=== PATIENT | female | born 1990 | race American Indian/Alaskan Native ===

== ENCOUNTER 2017-09-27 09:03 | Inpatient (IN) | payer MEDICAID ==
--- NOTE | 2017-09-27 09:13 | History and Physical Report ---
History of Present Illness Date of examination: 09/27/17 Date of admission: 09/27/17 09:04 Chief complaint: post dates IOL History of present illness: EDC Confirmation: 09/16/2017 Past History : 2 Living Children: 0 Spont. Ab: 1 # 1 Delivery date: 04/06/2010 Delivery type: SAB Comments: D&C Past Surgical History: negative Past Medical History Anesthesia Complications: negative Anemia: negative Autoimmune Disorder: negative Bleeding Disorder: negative Blood Transfusions: negative Breast Disease: negative Diabetes: negative Heart Disease: negative Hypertension: negative Hepatitis/Liver Disease: negative Kidney Disease/UTI: negative Neurologic/Epilepsy/Migraines: negative Phlebitis/Varicosities: negative Psychiatric: negative Pulmonary Disease/Asthma: negative Thyroid Disease: negative Hospitalizations: negative Surgery (Non-director of training): negative Infection History Hx of STD: none HIV Risk Eval: low risk Hepatitis B Risk Eval: low risk Personal hx. of genital herpes: no Partner hx. of genital herpes: no Varicella/Chicken Pox Status: Previous Disease TB Risk: no Genetic History Congenital Heart Defect: Mom: no Dad: no Christopher Disease: Mom: no Dad: no Thalassemia Mom: no Dad: no Neural Tube Defect Mom: no Dad: no Down's Syndrome Mom: no Dad: no Richy-Sachs Mom: no Dad: no Sickle Cell Disease/Trait Mom: no Dad: no Hemophilia Mom: no Dad: no Muscular Dystrophy Mom: no Dad: no Cystic Fibrosis Mom: no Dad: no [place] Chorea Mom: no Dad: no Mental Retardation Mom: no Dad: no Fragile X Mom: no Dad: no Other Genetic/Chromosomal Disorder Mom: no Dad: no Child w/other defect Mom: no Dad: no Enviromental Exposures Xray Exposure: no Medication, drug, or alcohol use since LMP: no Chemical/Other Exposure: no Exposure to Cat Liter: no Active Medications (reviewed today): None Current Allergies (reviewed today): No known allergies Past History Past Medical History: no pertinent history Past Surgical History: no surgical history - Obstetrical History Expected Date of Delivery: 09/16/17 Actual Gestation: 41 Week(s) 4 Day(s) : 2 Para: 0 Hx # Term Pregnancies: 0 Number of Pregnancies: 0 Spontaneous Abortions: 1 Induced : 0 Number of Living Children: 0 Medications and Allergies Allergies Allergy/AdvReac Type Severity Reaction Status Date / Time No Known Allergies Allergy Verified 09/27/17 09:42 Review of Systems All systems: negative - Physical Exam Breasts: Positive: normal Cardiovascular: Regular rate Lungs: Positive: Clear to auscultation, Normal air movement Abdomen: Positive: normal appearance, soft Genitourinary (Female): Positive: normal external genitalia, normal perenium Vulva: both: normal Vagina: Positive: normal moisture Uterus: Positive: normal size, normal contour Anus/Rectum: Positive: normal perianal skin Extremities: Positive: normal Deep Tendon Reflex Grade: Normal +2 - Obstetrical FHR: category 2 Uterine Contraction Monitor Mode: External Cervical Dilatation: 1 Cervical Effacement Percentage: 50 station: -2 Uterine Contraction Pattern: Absent Uterine Tone Measurement Phase: Resting (variables noted that appeared to be position dependent - resolved with position change.) Results Result Diagrams: 09/27/17 09:47 All other labs normal. Patient: ROSS MCDOWELL ID: [id number] Note: All result statuses are Final unless otherwise noted. Tests: (1) Profile I ([id number]) HBsAg Screen Negative Negative *1 Rubella Antibodies, IgG 3.65 index Immune >0.99 *2 Non-immune <0.90 Equivocal 0.90 - 0.99 Immune >0.99 ABO Grouping O *3 Rh Factor Positive *4 Please note: Prior records for this patient's ABO / Rh type are not available for additional verification. Antibody Screen Negative Negative *5 RPR Non Reactive Non Reactive *6 WBC 5.4 x10E3/uL 3.4-10.8 *7 RBC [L] 3.75 x10E6/uL 3.77-5.28 *8 Hemoglobin [L] 9.8 g/dL 11.1-15.9 *9 Hematocrit [L] 29.9 % 34.0-46.6 *10 MCV 80 fL 79-97 *11 MCH [L] 26.1 pg 26.6-33.0 *12 MCHC 32.8 g/dL 31.5-35.7 *13 RDW 14.6 % 12.3-15.4 *14 Platelets 178 x10E3/uL 150-379 *15 Neutrophils 72 % *16 Lymphs 22 % *17 Monocytes 6 % *18 Eos 0 % *19 Basos 0 % *20 ! Immature Cells <No Reported Value> *21 Neutrophils (Absolute) 3.9 x10E3/uL 1.4-7.0 *22 Lymphs (Absolute) 1.2 x10E3/uL 0.7-3.1 *23 Monocytes(Absolute) 0.3 x10E3/uL 0.1-0.9 *24 Eos (Absolute) 0.0 x10E3/uL 0.0-0.4 *25 Baso (Absolute) 0.0 x10E3/uL 0.0-0.2 *26 ! Immature Granulocytes 0 % *27 ! Immature Grans (Abs) 0.0 x10E3/uL 0.0-0.1 *28 ! NRBC <No Reported Value> *29 Hematology Comments: <No Reported Value> *30 Tests: (2) AFP Tetra ([id number]) ! Results Report *31 ! Test Results: *Screen Negative* *32 ! Gest. Age on Collection Date 15.0 WEEKS *33 ! Gestat. Age Based On LMP *34 ! Maternal [age] DOMINIC 29[age]0 YEARS *35 ! Race Black *36 ! Weight 106 lbs *37 ! Insulin Dep Diabetes No *38 ! Multiple Gestation No *39 ! AFP Value 67.8 ng/mL *40 ! AFP MoM 1.74 *41 ! hCG Value 42977 mIU/mL *42 ! hCG MoM 0.74 *43 ! uE3 Value 1.16 ng/mL *44 ! uE3 MoM 1.74 *45 ! JASMYNE Value 214.88 pg/mL *46 ! JASMYNE MoM 0.89 *47 ! OSBR Risk 1 IN 2954 *48 ! DSR (Second Trimester) 1 [place] [address] *49 ! DSR (By Age) 1 IN 781 *50 ! T18 Risk Not increased *51 ! T18 (By Age) 1:3043 *52 ! Interpretation NL42 *53 Interpretation: Screen Negative This result is screen negative for OSB, Down Syndrome and Trisomy 18. The AFP MoM and patient specific risks calculated are based on the gestational age and the clinical information provided. This test can identify up to 80% of open neural tube defects. Closed neural tube defects and some open defects may not be detected by this test. The combination of maternal age, AFP, hCG, uE3, and JASMYNE identifies 75-80% of Down Syndrome. The combination of maternal age, AFP, hCG and uE3 identifies 60% of Trisomy 18 pregnancies. The [employer] recommends amniocentesis be offered to women age 35 and older. Recalculations are not recommended when gestational dating by LMP and ultrasound are within 10 days. ! Comments: [facility] *54 Sole Díaz, PhD, [facility] Director, Biochemical and Molecular Genetics References: Available Upon Request. Multiples Of Median Cutoffs Abbreviation Definitions For AFP Elevations IDD- Insulin Dep Diabetes Barber 2.5 Black 2.8 OSBR- Open Spina Bifida IDD 2.0 Twins 4.5 Risk DSR Cutoff 1:270 DSR- Down Syndrome Risk T18 Cutoff 1:100 T18- Trisomy 18 Down Syndrome and Trisomy 18 screening are considered Investigational For further inquiries contact [employer] at [phone]. ! PDF . *55 Tests: (3) SMN1 Copy Number Analysis ([id number]) ! Genetic Counselor: Not applicable *56 ! Client Specimen ID: Not applicable *57 ! Specimen Type: [facility] *58 Peripheral Blood ! Specimen(s) Received: [facility] *59 1 - Yellow (ACD) 10 ml round bottom tube(s) ! Clinical Data: [facility] *60 Not Provided ! Ethnicity: [facility] *61 Not Provided ! SMA Results: [facility] *62 SMN1 copy number: 2 (Reduced Carrier Risk) ! SMA Interpretation: Note *63 This individual has an SMN1 copy number of two. This result reduces but does not eliminate the risk to be a carrier of SMA. Information regarding clinical indication may provide a more detailed interpretation. ! Comments: Note *64 Spinal muscular atrophy (SMA) is an autosomal recessive disease of variable age of onset and severity caused by mutations (most often deletions or gene conversions) in the survival motor neuron (SMN1) gene. Molecular testing assesses the number of copies of the SMN1 gene. Individuals with one copy of the SMN1 gene are predicted to be carriers of SMA. Individuals with two or more copies have a reduced risk to be carriers. (Affected individuals have 0 copies of the SMN1 gene.) This copy number analysis cannot detect individuals who are carriers of SMA as a result of either 2 (or very rarely 3) copies of the SMN1 gene on one chromosome and the absence of the SMN1 gene on the other chromosome or small intragenic mutations within the SMN1 gene. This analysis also will not detect germline mosaicism or mutations in genes other than SMN1. Additionally, de anup mutations have been reported in approximately 2% of SMA patients. ! Carrier Detection Rate: Note *65 Carrier Frequency and Risk Reductions for Individuals with No Family History of SMA Reduced Reduced Carrier Carrier Prior Risk for Risk for Detection Carrier 2 copy 3 copy Ethnicity rate(1) Risk(1) result result 94.8% 1:47 1:834 1:5,600 Ashkenazi Yazidism 90.5% 1:67 1:611 1:5,400 93.3% 1:59 1:806 1:5,600 90.0% 1:68 1:579 1:5,400 70.5% 1:72 1:130 1:4,200 90.2% 1:52 1:443 1:5,400 ! Method/Limitations: Note *66 METHOD/LIMITATIONS: Specimen DNA is isolated and amplified by real-time polymerase chain reaction (PCR) for exon 7 of the SMN1 gene and the internal standard reference genes. A mathematical algorithm is used to calculate and report SMN1 copy numbers of 0, 1, 2 and 3. Based upon this analysis, an upper limit of 3 represents the highest degree of accuracy in reporting SMN1 copy number with statistical confidence. Sequencing of the primer and probe binding sites is performed on all samples and samples with one copy of SMN1 by real-time PCR to rule out the presence of sequence variants which could interfere with analysis and interpretation. False positive or negative results may occur for reasons that include genetic variants, blood transfusions, bone marrow transplantation, erroneous representation of family relationships or contamination of a sample with maternal cells. ! References: Note *67 REFERENCES: 1. Carolyn JEAN, Garland N, Jo H, et al. Miller-ethnic carrier screening and diagnosis for spinal muscular atrophy: clinical laboratory analysis of >72,400 specimens. Eur J Hum Leonor 2012; 20:27-32. 2. Prior ALMEIDA, et al. Technical standards and guidelines for spinal muscular atrophy testing. Leonor Med 2011; 13(7): 686-694. ! Disclaimer: Note *68 The test was developed and its performance characteristics have been determined by [employer]. The laboratory is regulated under the Clinical Laboratory Improvement Amendments of 1988 (CLIA) as qualified to perform high complexity clinical testing. This test must be used in conjunction with clinical assessment, when available. [employer] is a business unit of [employer], a wholly-owned subsidiary of [employer]. ! Electronically Signed by: [facility] *69 Leann Brunner, Ph.D., [facility], Tests: (4) HB Solu + Rflx [facility] ([id number]) Hemoglobin (Hgb) Solubility Negative Negative *70 Tests: (5) Panel 002100 ([id number]) HIV Screen 4th Generation wRfx Non Reactive Non Reactive *71 Tests: (1) Chlamydia/GC Amplification ([id number]) Order Note: Clinical Information: SRC:VR SRC:UR Chlamydia trachomatis, DONNY Negative Negative *1 Neisseria gonorrhoeae, DONNY Negative Negative *2 Tests: (2) Strep Gp B DONNY ([id number]) ! Strep Gp B DONNY [A] Positive Assessment and Plan 26y/o @ 41+4 weeks, IOL for postdates. GBS +. Admission orders in EMR. - Patient Problems (1) 41 weeks gestation of Current Visit: Yes Status: Acute (2) GBS (group B Streptococcus carrier), +RV culture, currently Current Visit: Yes Status: Acute Plan to address problem: Ampicillin in active labor, q4h until delivery
[2017-09-27] MEDS ORDERED: ePHEDrine SULFATE IV PRN (10:00)
[2017-09-27] MEDS ORDERED: MINERAL OIL PO PRN (10:00)
[2017-09-27] MEDS ORDERED: BRETHINE SUB-Q PRN (10:00)
[2017-09-27] MEDS ORDERED: PITOCin/NS 20 UNIT/1000ML DRIP 20 UNITS/1,000 ML BAG IV SCH ×2 (10:00→23:12)
[2017-09-27] MEDS ORDERED: PITOCin/NS 30 UNIT/500ML 30 UNITS/500 ML BAG IV SCH (10:00)
[2017-09-27] MEDS ORDERED: SUBLIMAZE IV PRN (10:00)
[2017-09-27] MEDS ORDERED: POLYCILLIN/NS 2 GM/100 ML 2 GM/100 ML BAG IV ONE (10:00)
[2017-09-27 10:18] LABS: Hematocrit 29.5 % (30.3-42.9); Hemoglobin 9.7 gm/dl (10.1-14.3); Mean Corpuscular HGB Conc 33 % (30-34); Mean Corpuscular Hemoglobin 27 pg (28-32); Mean Corpuscular Volume 82 fl (79-97); Platelet Count 221 K/mm3 (140-440); Red Blood Count 3.59 M/mm3 (3.65-5.03); Red Cell Distribution Width 14.3 % (13.2-15.2); White Blood Count 6.6 K/mm3 (4.5-11.0)
[2017-09-27] MEDS: LACTATED RINGERS 1,000 ML IV SCH ×2 (10:34→14:04)
[2017-09-27] MEDS ORDERED: XYLOCAINE 2% INFILTRATI ONE (11:00)
[2017-09-27] MEDS ORDERED: BICITRA ONE (11:12)
[2017-09-27] MEDS ORDERED: BICITRA PO ONE (11:30)
--- NOTE | 2017-09-27 13:22 | Progress Note ---
Assessment and Plan patient c/o pain 6/10 with ctx, already received dose of IV sedation. SVE 2/80/ 0 with bloody show. fht with variables, some appear to be late decels. Plan discussed for AROM and internal monitors. IVF bolus started for epidural. Will update Dr. Gaston. - Patient Problems (1) 41 weeks gestation of Current Visit: Yes Status: Acute (2) GBS (group B Streptococcus carrier), +RV culture, currently Current Visit: Yes Status: Acute Subjective - Subjective Date of service: 09/27/17 Principal diagnosis: IUP @ 41+4, IOL for postdates Interval history: EDC Confirmation: 09/16/2017 Past History : 2 Living Children: 0 Spont. Ab: 1 # 1 Delivery date: 04/06/2010 Delivery type: SAB Comments: D&C Past Surgical History: negative Past Medical History Anesthesia Complications: negative Anemia: negative Autoimmune Disorder: negative Bleeding Disorder: negative Blood Transfusions: negative Breast Disease: negative Diabetes: negative Heart Disease: negative Hypertension: negative Hepatitis/Liver Disease: negative Kidney Disease/UTI: negative Neurologic/Epilepsy/Migraines: negative Phlebitis/Varicosities: negative Psychiatric: negative Pulmonary Disease/Asthma: negative Thyroid Disease: negative Hospitalizations: negative Surgery (Non-paraffiner): negative Infection History Hx of STD: none HIV Risk Eval: low risk Hepatitis B Risk Eval: low risk Personal hx. of genital herpes: no Partner hx. of genital herpes: no Varicella/Chicken Pox Status: Previous Disease TB Risk: no Genetic History Congenital Heart Defect: Mom: no Dad: no Christopher Disease: Mom: no Dad: no Thalassemia Mom: no Dad: no Neural Tube Defect Mom: no Dad: no Down's Syndrome Mom: no Dad: no Richy-Sachs Mom: no Dad: no Sickle Cell Disease/Trait Mom: no Dad: no Hemophilia Mom: no Dad: no Muscular Dystrophy Mom: no Dad: no Cystic Fibrosis Mom: no Dad: no [place] Chorea Mom: no Dad: no Mental Retardation Mom: no Dad: no Fragile X Mom: no Dad: no Other Genetic/Chromosomal Disorder Mom: no Dad: no Child w/other defect Mom: no Dad: no Enviromental Exposures Xray Exposure: no Medication, drug, or alcohol use since LMP: no Chemical/Other Exposure: no Exposure to Cat Liter: no Active Medications (reviewed today): None Current Allergies (reviewed today): No known allergies Patient reports: movement normal, contractions Objective - Vital Signs Vital Signs: Vital Signs - 12hr 09/27/17 09/27/17 09/27/17 09:25 11:24 11:54 Pulse Rate 74 88 85 Blood Pressure 106/61 106/66 105/56 09/27/17 12:25 Pulse Rate 85 Blood Pressure 108/68 - Exam Breasts: normal Cardiovascular: Regular rate Lungs: Clear to auscultation, Normal air movement Abdomen: Present: normal appearance, soft Vulva: both: normal Uterus: Present: normal FHR: category 2 (variable decels, possible lates. IUPC and ISE placed for more accurate monitoring) Uterine Contraction Monitor Mode: Internal Cervical Dilatation: 2 (vertex, AROM clear) Cervical Effacement Percentage: 80 station: 0 Uterine Contraction Pattern: Regular Uterine Tone Measurement Phase: Contraction Uterine Contraction Intensity: Moderate Extremities: normal Deep Tendon Reflex Grade: Normal +2 - Labs Labs: Abnormal Labs 09/27/17 09:47 RBC 3.59 L Hgb 9.7 L Hct 29.5 L MCH 27 L Laboratory Results - last 24 hr 09/27/17 09/27/17 09/27/17 09:47 09:47 09:47 WBC 6.6 RBC 3.59 L Hgb 9.7 L Hct 29.5 L MCV 82 MCH 27 L MCHC 33 RDW 14.3 Plt Count 221 RPR Nonreactive Blood Type O POSITIVE Antibody Screen Negative
[2017-09-27] MEDS: POLYCILLIN/NS 1 GM/50 ML 1 GM/50 ML BAG IV SCH ×2 (15:06→19:30)
[2017-09-27] MEDS ORDERED: NARCAN 2 MG/2 ML IV PRN (15:42)
--- NOTE | 2017-09-27 15:42 | Anesthesia Consultation ---
Anesthesia Consult and Med Hx Date of service: 09/27/17 - Airway Anesthetic Teeth Evaluation: Good ROM Head & Neck: Adequate Mental/Hyoid Distance: Adequate Intubation Access Assessment: Probably Good - Pulmonary Exam CTA: Yes - Cardiac Exam Cardiac Exam: RRR - Pre-Operative Health Status ASA Pre-Surgery Classification: ASA2, Emergency Proposed Anesthetic Plan: Epidural, Spinal - Pulmonary Hx Asthma: No COPD: No Hx Pneumonia: No - Cardiovascular System Hx Hypertension: No - Central Nervous System Hx Seizures: No Hx Psychiatric Problems: No - Endocrine Hx Renal Disease: No Hx End Stage Renal Disease: No Hx Hypothyroidism: No Hx Hyperthyroidism: No - Hematic Hx Anemia: No Hx Sickle Cell Disease: No - Other Systems Hx Alcohol Use: No
[2017-09-27] MEDS ORDERED: fentaNYL-BUPIV 2 MCG/ML-0.125% 200 MCG/100 ML BAG EPIDURAL SCH (16:00)
[2017-09-27] MEDS ORDERED: NACL 0.9% 1000 ML 1,000 ML VG SCH (17:00)
--- NOTE | 2017-09-27 17:13 | Progress Note ---
Assessment and Plan patient resting comfortably post epidural, SVE 4.5/90/0. fht with ave variability, variable decels noted with ctx, will start amnioinfusion per routine. discussed with patient and patient's mother indication - both verbalize understanding and agreement. GBS prophylaxis x 2 doses at this time. Continue titrating pitocin for adequate labor as tolerated by tracing. Dr. Gaston updated. - Patient Problems (1) 41 weeks gestation of Current Visit: Yes Status: Acute (2) GBS (group B Streptococcus carrier), +RV culture, currently Current Visit: Yes Status: Acute Plan to address problem: second dose infused Subjective - Subjective Date of service: 09/27/17 Principal diagnosis: IUP @ 41+4, IOL for postdates Interval history: EDC Confirmation: 09/16/2017 Past History : 2 Living Children: 0 Spont. Ab: 1 # 1 Delivery date: 04/06/2010 Delivery type: SAB Comments: D&C Past Surgical History: negative Past Medical History Anesthesia Complications: negative Anemia: negative Autoimmune Disorder: negative Bleeding Disorder: negative Blood Transfusions: negative Breast Disease: negative Diabetes: negative Heart Disease: negative Hypertension: negative Hepatitis/Liver Disease: negative Kidney Disease/UTI: negative Neurologic/Epilepsy/Migraines: negative Phlebitis/Varicosities: negative Psychiatric: negative Pulmonary Disease/Asthma: negative Thyroid Disease: negative Hospitalizations: negative Surgery (Non-health information tech): negative Infection History Hx of STD: none HIV Risk Eval: low risk Hepatitis B Risk Eval: low risk Personal hx. of genital herpes: no Partner hx. of genital herpes: no Varicella/Chicken Pox Status: Previous Disease TB Risk: no Genetic History Congenital Heart Defect: Mom: no Dad: no Christopher Disease: Mom: no Dad: no Thalassemia Mom: no Dad: no Neural Tube Defect Mom: no Dad: no Down's Syndrome Mom: no Dad: no Richy-Sachs Mom: no Dad: no Sickle Cell Disease/Trait Mom: no Dad: no Hemophilia Mom: no Dad: no Muscular Dystrophy Mom: no Dad: no Cystic Fibrosis Mom: no Dad: no [place] Chorea Mom: no Dad: no Mental Retardation Mom: no Dad: no Fragile X Mom: no Dad: no Other Genetic/Chromosomal Disorder Mom: no Dad: no Child w/other defect Mom: no Dad: no Enviromental Exposures Xray Exposure: no Medication, drug, or alcohol use since LMP: no Chemical/Other Exposure: no Exposure to Cat Liter: no Active Medications (reviewed today): None Current Allergies (reviewed today): No known allergies Patient reports: movement normal, no new complaints (comfortable with epidural) Objective - Vital Signs Vital Signs: Vital Signs - 12hr 09/27/17 09/27/17 09/27/17 09:25 11:24 11:54 Pulse Rate 74 88 85 Blood Pressure 106/61 106/66 105/56 O2 Sat by Pulse Oximetry 09/27/17 09/27/17 09/27/17 12:25 14:01 14:24 Pulse Rate 85 93 H 90 Blood Pressure 108/68 107/58 105/71 O2 Sat by Pulse Oximetry 09/27/17 09/27/17 09/27/17 14:55 15:21 15:23 Pulse Rate 91 H 107 H 103 H Blood Pressure 107/66 112/67 O2 Sat by Pulse 99 Oximetry 09/27/17 09/27/17 09/27/17 15:24 15:26 15:27 Pulse Rate 103 H 98 H 99 H Blood Pressure 114/71 109/62 O2 Sat by Pulse 100 Oximetry 09/27/17 09/27/17 09/27/17 15:29 15:31 15:33 Pulse Rate 98 H 96 H 81 Blood Pressure 105/65 89/51 96/56 O2 Sat by Pulse 100 Oximetry 09/27/17 09/27/17 09/27/17 15:35 15:36 15:37 Pulse Rate 90 75 82 Blood Pressure 95/52 109/61 O2 Sat by Pulse 98 Oximetry 09/27/17 09/27/17 09/27/17 15:39 15:41 15:43 Pulse Rate 84 93 H 82 Blood Pressure 108/65 107/55 116/65 O2 Sat by Pulse 99 Oximetry 09/27/17 09/27/17 09/27/17 15:45 15:46 15:51 Pulse Rate 86 90 86 Blood Pressure 110/50 O2 Sat by Pulse 99 99 Oximetry 09/27/17 09/27/17 09/27/17 15:56 16:00 16:01 Pulse Rate 86 86 90 Blood Pressure 112/59 O2 Sat by Pulse 99 100 Oximetry 09/27/17 09/27/17 09/27/17 16:06 16:11 16:15 Pulse Rate 83 92 H 91 H Blood Pressure 112/62 O2 Sat by Pulse 99 99 Oximetry 09/27/17 09/27/17 09/27/17 16:16 16:21 16:26 Pulse Rate 91 H 90 90 Blood Pressure O2 Sat by Pulse 100 100 99 Oximetry 09/27/17 09/27/17 09/27/17 16:30 16:31 16:36 Pulse Rate 91 H 89 96 H Blood Pressure 108/55 O2 Sat by Pulse 100 98 Oximetry 09/27/17 09/27/17 09/27/17 16:41 16:46 16:51 Pulse Rate 95 H 98 H 87 Blood Pressure O2 Sat by Pulse 97 98 98 Oximetry 09/27/17 09/27/17 09/27/17 16:56 17:01 17:02 Pulse Rate 90 94 H 90 Blood Pressure 104/59 O2 Sat by Pulse 98 98 Oximetry 09/27/17 09/27/17 17:03 17:06 Pulse Rate 96 H 89 Blood Pressure O2 Sat by Pulse 93 98 Oximetry - Exam Breasts: normal Cardiovascular: Regular rate Lungs: Clear to auscultation, Normal air movement Abdomen: Present: normal appearance, soft, normal bowel sounds Vulva: both: normal Uterus: Present: normal FHR: category 2 Uterine Contraction Monitor Mode: Internal Cervical Dilatation: 4 Cervical Effacement Percentage: 90 station: 0 Uterine Contraction Pattern: Regular Uterine Tone Measurement Phase: Contraction Uterine Contraction Intensity: Moderate Extremities: normal Deep Tendon Reflex Grade: Normal +2 - Labs Labs: Abnormal Labs 09/27/17 09:47 RBC 3.59 L Hgb 9.7 L Hct 29.5 L MCH 27 L Laboratory Results - last 24 hr 09/27/17 09/27/17 09/27/17 09:47 09:47 09:47 WBC 6.6 RBC 3.59 L Hgb 9.7 L Hct 29.5 L MCV 82 MCH 27 L MCHC 33 RDW 14.3 Plt Count 221 RPR Nonreactive Blood Type O POSITIVE Antibody Screen Negative
--- NOTE | 2017-09-27 18:45 | Progress Note ---
Assessment and Plan patient doing well, SVE 9/100/0, + fluid return from amnioinfusion. Patient turned to left lateral position with right leg up in stirrup. Will reevaluate in 1 hour or sooner if patient begins to feel pressure. Dr. Gaston updated. - Patient Problems (1) 41 weeks gestation of Current Visit: Yes Status: Acute (2) GBS (group B Streptococcus carrier), +RV culture, currently Current Visit: Yes Status: Acute Subjective - Subjective Date of service: 09/27/17 Principal diagnosis: IUP @ 41+4, IOL for postdates Interval history: EDC Confirmation: 09/16/2017 Past History : 2 Living Children: 0 Spont. 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 of genital herpes: no Partner hx. of genital herpes: no Varicella/Chicken Pox Status: Previous Disease TB Risk: no Genetic History Congenital Heart Defect: Mom: no Dad: no Christopher Disease: Mom: no Dad: no Thalassemia Mom: no Dad: no Neural Tube Defect Mom: no Dad: no Down's Syndrome Mom: no Dad: no Richy-Sachs Mom: no Dad: no Sickle Cell Disease/Trait Mom: no Dad: no Hemophilia Mom: no Dad: no Muscular Dystrophy Mom: no Dad: no Cystic Fibrosis Mom: no Dad: no [place] Chorea Mom: no Dad: no Mental Retardation Mom: no Dad: no Fragile X Mom: no Dad: no Other Genetic/Chromosomal Disorder Mom: no Dad: no Child w/other defect Mom: no Dad: no Enviromental Exposures Xray Exposure: no Medication, drug, or alcohol use since LMP: no Chemical/Other Exposure: no Exposure to Cat Liter: no Active Medications (reviewed today): None Current Allergies (reviewed today): No known allergies Patient reports: movement normal, no new complaints (comfortable with epidural) Objective - Vital Signs Vital Signs: Vital Signs - 12hr 09/27/17 09/27/17 09/27/17 09:25 11:24 11:54 Pulse Rate 74 88 85 Blood Pressure 106/61 106/66 105/56 O2 Sat by Pulse Oximetry 09/27/17 09/27/17 09/27/17 12:25 14:01 14:24 Pulse Rate 85 93 H 90 Blood Pressure 108/68 107/58 105/71 O2 Sat by Pulse Oximetry 09/27/17 09/27/17 09/27/17 14:55 15:21 15:23 Pulse Rate 91 H 107 H 103 H Blood Pressure 107/66 112/67 O2 Sat by Pulse 99 Oximetry 09/27/17 09/27/17 09/27/17 15:24 15:26 15:27 Pulse Rate 103 H 98 H 99 H Blood Pressure 114/71 109/62 O2 Sat by Pulse 100 Oximetry 09/27/17 09/27/17 09/27/17 15:29 15:31 15:33 Pulse Rate 98 H 96 H 81 Blood Pressure 105/65 89/51 96/56 O2 Sat by Pulse 100 Oximetry 09/27/17 09/27/17 09/27/17 15:35 15:36 15:37 Pulse Rate 90 75 82 Blood Pressure 95/52 109/61 O2 Sat by Pulse 98 Oximetry 09/27/17 09/27/17 09/27/17 15:39 15:41 15:43 Pulse Rate 84 93 H 82 Blood Pressure 108/65 107/55 116/65 O2 Sat by Pulse 99 Oximetry 09/27/17 09/27/17 09/27/17 15:45 15:46 15:51 Pulse Rate 86 90 86 Blood Pressure 110/50 O2 Sat by Pulse 99 99 Oximetry 09/27/17 09/27/17 09/27/17 15:56 16:00 16:01 Pulse Rate 86 86 90 Blood Pressure 112/59 O2 Sat by Pulse 99 100 Oximetry 09/27/17 09/27/17 09/27/17 16:06 16:11 16:15 Pulse Rate 83 92 H 91 H Blood Pressure 112/62 O2 Sat by Pulse 99 99 Oximetry 09/27/17 09/27/17 09/27/17 16:16 16:21 16:26 Pulse Rate 91 H 90 90 Blood Pressure O2 Sat by Pulse 100 100 99 Oximetry 09/27/17 09/27/17 09/27/17 16:30 16:31 16:36 Pulse Rate 91 H 89 96 H Blood Pressure 108/55 O2 Sat by Pulse 100 98 Oximetry 09/27/17 09/27/17 09/27/17 16:41 16:46 16:51 Pulse Rate 95 H 98 H 87 Blood Pressure O2 Sat by Pulse 97 98 98 Oximetry 09/27/17 09/27/17 09/27/17 16:56 17:01 17:02 Pulse Rate 90 94 H 90 Blood Pressure 104/59 O2 Sat by Pulse 98 98 Oximetry 09/27/17 09/27/17 09/27/17 17:03 17:06 17:11 Pulse Rate 96 H 89 94 H Blood Pressure O2 Sat by Pulse 93 98 100 Oximetry 09/27/17 09/27/17 09/27/17 17:15 17:16 17:21 Pulse Rate 91 H 88 88 Blood Pressure 100/59 O2 Sat by Pulse 99 100 Oximetry 09/27/17 09/27/17 09/27/17 17:26 17:30 17:31 Pulse Rate 87 96 H 89 Blood Pressure 100/57 O2 Sat by Pulse 99 99 Oximetry 09/27/17 09/27/17 09/27/17 17:36 17:41 17:46 Pulse Rate 85 88 95 H Blood Pressure 99/61 O2 Sat by Pulse 100 100 100 Oximetry 09/27/17 09/27/17 09/27/17 17:51 17:56 18:00 Pulse Rate 87 84 98 H Blood Pressure 117/62 O2 Sat by Pulse 99 100 Oximetry 09/27/17 09/27/17 09/27/17 18:01 18:06 18:10 Pulse Rate 95 H 91 H 100 H Blood Pressure O2 Sat by Pulse 99 100 80 L Oximetry 09/27/17 09/27/17 09/27/17 18:11 18:16 18:17 Pulse Rate 97 H 87 89 Blood Pressure 96/58 O2 Sat by Pulse 98 100 Oximetry 09/27/17 09/27/17 09/27/17 18:21 18:26 18:30 Pulse Rate 90 94 H 87 Blood Pressure 99/59 O2 Sat by Pulse 99 99 Oximetry 09/27/17 09/27/17 09/27/17 18:31 18:36 18:41 Pulse Rate 94 H 88 87 Blood Pressure O2 Sat by Pulse 100 100 100 Oximetry - Exam Breasts: normal Cardiovascular: Regular rate Lungs: Clear to auscultation, Normal air movement Abdomen: Present: normal appearance, soft Vulva: both: normal Uterus: Present: normal FHR: auscultation normal, category 1 (early decels) Uterine Contraction Monitor Mode: Internal Cervical Dilatation: 9 Cervical Effacement Percentage: 100 station: 0 Uterine Contraction Pattern: Regular Uterine Tone Measurement Phase: Contraction Uterine Contraction Intensity: Strong/Firm Extremities: normal - Labs Labs: Abnormal Labs 09/27/17 09:47 RBC 3.59 L Hgb 9.7 L Hct 29.5 L MCH 27 L Laboratory Results - last 24 hr 09/27/17 09/27/17 09/27/17 09:47 09:47 09:47 WBC 6.6 RBC 3.59 L Hgb 9.7 L Hct 29.5 L MCV 82 MCH 27 L MCHC 33 RDW 14.3 Plt Count 221 RPR Nonreactive Blood Type O POSITIVE Antibody Screen Negative
--- NOTE | 2017-09-27 21:03 | Procedure Note ---
OB Delivery Note - Delivery Date of Delivery: 09/27/17 ( Male) Manager Ethics: SANDY BHAKTA Estimated blood loss: 200cc - Vaginal Delivery presentation: vertex Delivery position: OA (YARELI) Intrapartum events: mult.variable deceleratio Delivery induction: oxytocin Delivery augmentation: rupture of membranes, pitocin Delivery monitor: internal FHT, internal uterine Route of delivery: Delivery placenta: spontaneous Delivery cord: 3 umbilical vessels Delivery laceration: other (hymenal ring laceration) Delivery repair: vicryl (2 stitches for hemostasis) Anesthesia: epidural Delivery comments: Male del YARELI over intact perineum, no shoulder dystocia. Infant placed skin to skin on mother's abdomen. 3 vessel cord clamped and cut, cord blood collected. Placenta del intact and complete. Pit to IVF. Hymenal ring tore up the right side of the vagina, hanging flesh tied off and clipped - no additional bleeding. No other laceration to repair. ELB 200. Baby's weight 7#13 , apgars 7/9. Mother and infant remain LDR stable. - A at 1 minute: 7 at 5 minutes: 9 Infant Gender: Male (7#13)
[2017-09-27] MEDS ORDERED: DULCOLAX PR PRN (23:12)
[2017-09-27] MEDS ORDERED: BENADRYL PO PRN (23:12)
[2017-09-27] MEDS ORDERED: TYLENOL PO PRN (23:12)
[2017-09-27] MEDS ORDERED: ZOFRAN IV PRN (23:12)
[2017-09-27] MEDS ORDERED: NORCO 5/325 PO PRN (23:12)
[2017-09-27] MEDS ORDERED: PHENERGAN PO PRN (23:12)
[2017-09-27] MEDS ORDERED: MILK OF MAGNESIA PO PRN (23:12)
[2017-09-27] MEDS ORDERED: DERMOPLAST TP PRN (23:12)
[2017-09-27] MEDS ORDERED: TUCKS PAD TP PRN (23:12)
[2017-09-27] MEDS ORDERED: SODIUM CHLORIDE FLUSH SYRINGE 10 ML IV NR (23:12)
[2017-09-27] MEDS: COLACE PO SCH (23:54)
[2017-09-27] MEDS: FEOSOL PO SCH (23:54)
[2017-09-27] MEDS: MOTRIN PO SCH (23:54)
[2017-09-28] MEDS: MOTRIN PO SCH ×3 (05:01→18:19)
[2017-09-28] MEDS ORDERED: BOOSTRIX IM ONE ×2 (06:00→12:00)
--- NOTE | 2017-09-28 06:51 | Progress Note ---
Assessment and Plan patient doing well, no complaints this morning. with assistance from nursing staff. [place] scant, VSSAF, H&H to be drawn @ 0900 but no s/s of anemia. Continue pathway and anticipate d/c home tomorrow. - Patient Problems (1) GBS (group B Streptococcus carrier), +RV culture, currently Current Visit: Yes Status: Acute Plan to address problem: treated adequately prior to delivery Subjective - Subjective Date of service: 09/28/17 Principal diagnosis: day #1 s/p Interval history: EDC Confirmation: 09/16/2017 Past History : 2 Living Children: 0 Spont. 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 of genital herpes: no Partner hx. of genital herpes: no Varicella/Chicken Pox Status: Previous Disease TB Risk: no Genetic History Congenital Heart Defect: Mom: no Dad: no Christopher Disease: Mom: no Dad: no Thalassemia Mom: no Dad: no Neural Tube Defect Mom: no Dad: no Down's Syndrome Mom: no Dad: no Richy-Sachs Mom: no Dad: no Sickle Cell Disease/Trait Mom: no Dad: no Hemophilia Mom: no Dad: no Muscular Dystrophy Mom: no Dad: no Cystic Fibrosis Mom: no Dad: no [place] Chorea Mom: no Dad: no Mental Retardation Mom: no Dad: no Fragile X Mom: no Dad: no Other Genetic/Chromosomal Disorder Mom: no Dad: no Child w/other defect Mom: no Dad: no Enviromental Exposures Xray Exposure: no Medication, drug, or alcohol use since LMP: no Chemical/Other Exposure: no Exposure to Cat Liter: no Active Medications (reviewed today): None Current Allergies (reviewed today): No known allergies Patient reports: appetite normal, voiding normally, pain well controlled, ambulating normally, no dizzy ambulation, no nauseated [place]: doing well, nursing well Objective - Vital Signs Latest vital signs: Vital Signs Temp Pulse Resp BP BP Pulse Ox 09/27/17 23:22 99.2 F 96 H 20 100/59 100 09/27/17 21:45 97 H 101/58 09/27/17 21:30 92 H 107/63 09/27/17 21:15 98.2 F 100 H 99/55 09/27/17 21:03 106 H 115/55 09/27/17 20:45 99 H 100/55 09/27/17 20:40 77 91 09/27/17 20:37 81 L 09/27/17 20:35 87 63 L 09/27/17 20:32 97 H 97 09/27/17 20:31 136 H 126/68 09/27/17 20:28 85 75 L 09/27/17 20:27 66 L 09/27/17 20:22 74 89 09/27/17 20:17 101 H 100 09/27/17 20:16 134 H 138/102 89 09/27/17 20:12 102 H 100 09/27/17 20:07 114 H 90 09/27/17 20:03 75 89 09/27/17 20:02 86 100 09/27/17 20:01 98 H 127/53 09/27/17 19:46 116 H 132/61 09/27/17 19:37 88 09/27/17 19:36 87 100 09/27/17 19:32 93 H 89/53 09/27/17 19:31 81 100 09/27/17 19:26 82 100 09/27/17 19:21 84 100 09/27/17 19:16 97.2 F L 77 18 93/50 93/50 100 09/27/17 19:11 90 99 09/27/17 19:10 78 91/55 09/27/17 19:07 87 83 L 09/27/17 19:06 83 100 09/27/17 19:01 86 84/45 100 09/27/17 18:56 86 97 09/27/17 18:51 80 100 09/27/17 18:46 87 100 09/27/17 18:41 87 100 09/27/17 18:36 88 100 09/27/17 18:31 94 H 100 17 18:30 87 99/59 17 18:26 94 H 99 17 18:21 90 99 17 18:17 89 96/58 17 18:16 87 100 09/27/17 18:11 97 H 98 17 18:10 100 H 80 L 09/27/17 18:06 91 H 100 17 18:01 95 H 99 17 18:00 98 H 117/62 17 17:56 84 100 17 17:51 87 99 17 17:46 95 H 99/61 100 09/27/17 17:41 88 100 09/27/17 17:36 85 100 17 17:31 89 99 09/27/17 17:30 96 H 100/57 09/27/17 17:26 87 99 09/27/17 17:21 88 100 09/27/17 17:16 88 99 09/27/17 17:15 91 H 100/59 09/27/17 17:11 94 H 100 09/27/17 17:06 89 98 09/27/17 17:03 96 H 93 09/27/17 17:02 90 104/59 09/27/17 17:01 94 H 98 09/27/17 16:56 90 98 09/27/17 16:51 87 98 09/27/17 16:46 98 H 98 09/27/17 16:41 95 H 97 09/27/17 16:36 96 H 98 09/27/17 16:31 89 100 17 16:30 91 H 108/55 09/27/17 16:26 90 99 17 16:21 90 100 17 16:16 91 H 100 17 16:15 91 H 112/62 09/27/17 16:11 92 H 99 17 16:06 83 99 09/27/17 16:01 90 100 17 16:00 86 112/59 17 15:56 86 99 17 15:51 86 99 17 15:46 90 99 11/22/17 15:45 86 110/50 09/27/17 15:43 82 116/65 09/27/17 15:41 93 H 107/55 99 09/27/17 15:39 84 108/65 09/27/17 15:37 82 109/61 09/27/17 15:36 75 98 09/27/17 15:35 90 95/52 09/27/17 15:33 81 96/56 09/27/17 15:31 96 H 89/51 100 09/27/17 15:29 98 H 105/65 09/27/17 15:27 99 H 109/62 09/27/17 15:26 98 H 100 09/27/17 15:24 103 H 114/71 09/27/17 15:23 103 H 112/67 09/27/17 15:21 107 H 99 09/27/17 14:55 91 H 107/66 09/27/17 14:24 90 105/71 09/27/17 14:01 93 H 107/58 09/27/17 12:25 85 108/68 09/27/17 11:54 85 105/56 09/27/17 11:24 88 106/66 09/27/17 09:25 74 106/61 Intake and Output 09/27/17 09/27/17 09/28/17 15:59 23:59 07:59 Intake Total 505.367 Output Total 200 300 Balance 505.367 -200 -300 Intake: IV 505.367 Lactated Ringers 1,000 ml 437.5 @ 125 mls/hr IV DIRECT CLAUDIA Rx#:[id number] PITOCin/NS 30 UNIT/500ML 17.867 30 units In 500 ml @ 4 mls/hr IV TITR CLAUDIA Rx#: [id number] POLYCILLIN/NS 1 GM/50 ML 50 1 gm In 50 ml @ 100 mls/ hr IV Q4H CLAUDIA Rx#: [id number] Output: Urine 200 300 Indwelling Catheter 100 Uretheral (Pantoja) 100 Void 300 Other: Total, Output Amount 100 300 Weight 62.142 kg Estimated Blood Loss 200 - Exam Breasts: Present: normal, Cardiovascular: Present: Regular rate Lungs: Present: Clear to auscultation, Normal air movement Abdomen: Present: normal appearance, soft, normal bowel sounds Vulva: both: laceration/episiotomy Uterus: Present: normal, firm, fundal height at umbilicus Extremities: Present: normal - Labs Labs: Abnormal lab results 09/27/17 Range/Units 09:47 RBC 3.59 L (3.65-5.03) M/mm3 Hgb 9.7 L (10.1-14.3) gm/dl Hct 29.5 L (30.3-42.9) % MCH 27 L (28-32) pg
[2017-09-28 10:50] LABS: Hematocrit 25.9 % (30.3-42.9); Hemoglobin 8.5 gm/dl (10.1-14.3)
[2017-09-28] MEDS ORDERED: Fluarix Quad 2017-2018(36 MOS+ IM ONE ×2 (12:00→12:45)
[2017-09-28] MEDS: FEOSOL PO SCH ×2 (12:38→21:51)
[2017-09-28] MEDS: PRENATAL VITAMIN PO SCH (12:39)
[2017-09-28] MEDS: COLACE PO SCH (21:51)
[2017-09-29] MEDS: MOTRIN PO SCH ×3 (00:45→12:30)
[2017-09-29 10:56] VITALS: BP 90/54
--- NOTE | 2017-09-29 11:25 | Discharge Summary ---
Providers - Providers Date of Admission: 09/27/17 09:04 Date of discharge: 09/29/17 Attending physician: AGGIE DOHERTY Primary care physician: SORTER PACKER Hospitalization Reason for admission: induction of labor (post dates) Delivery: Episiotomy: none Laceration: 2nd degree Other procedures: none complications: none Discharge diagnosis: IUP at term delivered baby: male Pertinent studies: d/c hct 25.9 on iron Hospital course: nl pp course Condition at discharge: Good Disposition: DC-01 TO HOME OR SELFCARE - Discharge Diagnoses (1) (normal spontaneous vaginal delivery) Status: Acute (2) 41 weeks gestation of Status: Acute (3) Anemia affecting in third trimester Status: Acute (4) GBS (group B Streptococcus carrier), +RV culture, currently Status: Acute Plan - Discharge Medications Prescriptions: Ferrous Sulfate [Feosol 325 MG tab] 325 mg PO BID #90 tablet Ibuprofen [Motrin 800 MG tab] 800 mg PO Q8HR PRN #30 tablet PRN Reason: Pain Lidocain2.5%/Prilocai2.5% [Emla] 5 gm TP ONCE PRN #1 tube PRN Reason: Pain - Provider Discharge Summary Activity: routine, no sex for 6 weeks, no heavy lifting 4 weeks Diet: routine Instructions: routine Additional instructions: [] Smoking cessation referral if applicable(refer to patient education folder for contact #) [] Refer to [facility] Booklet Call your doctor immediately for: * Fever > 100.5 * Heavy vaginal bleeding ( >1 pad per hour) * Severe persistent headache * Shortness of breath * Reddened, hot, painful area to leg or breast * Drainage or odor from incision. * Keep incision clean and dry at all times and follow doctor's instructions regarding bathing/showering - Follow up plan Follow up: ALEK BUI MD [Primary Care Provider] - 7 Days MICHELE THOMPSON MD [Staff Physician] - 7 Days
[2017-09-29] MEDS: PRENATAL VITAMIN PO SCH (12:30)
[2017-09-29] MEDS: COLACE PO SCH (12:30)
[2017-09-29] MEDS: FEOSOL PO SCH (12:30)
== END 2017-09-29 14:30 | disposition home or self-care (01) | DRG 775 ==
LOC: LD 09:04 → OB 22:38
PROVIDERS: ADMIT Obstetrics & Gynecology; ATTEND Obstetrics & Gynecology
PROC: 10E0XZZ Delivery of Products of Conception, External Approach (ICD-10-PCS; principal; 2017-09-27)
PROC: 0KQM0ZZ Repair Perineum Muscle, Open Approach (ICD-10-PCS; 2017-09-27)
PROC: 10907ZC Drainage of Amniotic Fluid, Therapeutic from Products of Conception, Via Natural or Artificial Opening (ICD-10-PCS; 2017-09-27)
PROC: 3E033VJ Introduction of Other Hormone into Peripheral Vein, Percutaneous Approach (ICD-10-PCS; 2017-09-27)
PROC: 3E0S3BZ Introduction of Anesthetic Agent into Epidural Space, Percutaneous Approach (ICD-10-PCS; 2017-09-27)
PROC: 00HU33Z Insertion of Infusion Device into Spinal Canal, Percutaneous Approach (ICD-10-PCS; 2017-09-27)
PROC: 3E0234Z Introduction of Serum, Toxoid and Vaccine into Muscle, Percutaneous Approach (ICD-10-PCS; 2017-09-28)
DX: O48.0 Post-term pregnancy (principal); O99.824 Streptococcus B carrier state complicating childbirth; O76 Abnormality in fetal heart rate and rhythm complicating labor and delivery; O99.02 Anemia complicating childbirth; D64.9 Anemia, unspecified; Z23 Encounter for immunization; Z37.0 Single live birth; Z3A.41 41 weeks gestation of pregnancy; O70.1 Second degree perineal laceration during delivery
CPT/HCPCS: 36415; 85014; 85018; 85027; 86592; 86850; 86900; 86901; 90471; 90686; 90715; 99211; G0008; G0463; J0290; J2590; J3010; J7030; J7120